=== PATIENT | female | born 1970 | race Caucasian/White ===

== ENCOUNTER 2022-07-09 19:37 | Emergency (ER) | payer OTHER ==
[2022-07-09 19:47] VITALS: BP 110/70; PULSE 78; RESP 19; TEMP 98.2; BMI 22.0
[2022-07-09] MEDS ORDERED: ACETAMINOPHEN 325 MG TABLET (FP) PO ONE (21:01)
[2022-07-09] MEDS ORDERED: ACETAMINOPHEN 325 MG TABLET (FP) ONE (21:04)
== END 2022-07-09 22:09 | disposition home or self-care (01) ==
LOC: JERFT 19:37
DX: G44.319 Acute post-traumatic headache, not intractable (principal)
CPT/HCPCS: 70450-TC; 72125-TC; 73090-TC-RT-FY; 99284-25